=== PATIENT | female | born 1975 | race African-American/Black ===

== ENCOUNTER 2016-05-19 11:57 | Emergency (ER) | payer OTHER ==
[2016-05-19 12:02] VITALS: BMI 56.2
[2016-05-19] MEDS ORDERED: ASPIRIN 81 MG CHEWTAB ONE (12:14)
[2016-05-19] MEDS ORDERED: NITROSTAT SL ONE (12:15)
[2016-05-19] MEDS: NITROSTAT SL PRN ×2 (12:18→12:19)
[2016-05-19] MEDS ORDERED: ASPIRIN 81 MG CHEWTAB PO ONE (12:18)
--- NOTE | 2016-05-19 12:19 | DR.GENAD ---
HPI - PCP Primary Care Physician: nfd - Complaint/Symptoms Chief Complaint Doctors Comments: Patient denies history of cardiopulmonary disease. She admits to left chest pain duration of seconds, sharp in quality, no diarpohoresis or SOB Chief Complaint:: patient stated her chest started hurting about 10 to 15 mins ago. mid sterium pain. - Source History Provided: Patient - Mode of Arrival Mode of Arrival: Ambulatory - Timing Onset of Chief Complaint: 05/19/16 PMH - PMH Past Medical History: No Past Surgical History: Yes Surgical History: - Family History History of Family Medical Conditions: Yes Family Medical History: Diabetes Mellitus, Cancer, Hypertension - Social History Does patient currently use any type of tobacco product: No Have you used tobacco products in the last 12 months: No Type of Tobacco Use: None Does any household member use tobacco: No Alcohol Use: None Do you use any recreational Drugs:: No Lives With: Family Lives Where: Home - infectious screening In the last 2 months have you had wt loss of >10#?: NO Have you had fever, night sweats or hemotysis?: No Have you traveled outside the country in the last 6 months?: No Isolation: Standard ROS - Review of Systems Constitutional: No Symptoms Reported Eyes: No Symptoms Reported ENTM: No Symptoms Reported, Hearing Loss Respiratoy: No Symptoms Reported Cardiovascular: No Symptoms Reported Gastrointestinal/Abdominal: No Symptoms Reported Genitourinary: No Symptoms Reported Neurological: No Symptoms Reported Musculoskeletal: No Symptoms Reported Integumentary: No Symptoms Reported Hematologic/Lymphatic: No Symptoms Reported Endocrine: No Symptoms Reported Psychiatric: No Symptoms Reported All Other Systems: Reviewed and Negative PE - Vital Signs Vitals: Temperature 98.6 F Pulse Rate [Left Radial] 69 Pulse Rate 74 Respiratory Rate 16 Blood Pressure [Left Arm] 144/92 Blood Pressure 146/89 O2 Sat by Pulse Oximetry 100 - General Limitations: No Limitations General Appearance: Alert, In No Apparent Distress, Appears Intoxicated - Head Head Exam: Normal Inspection, Atraumatic - Eyes Eye exam: Normal Appearance, PERRL, EOMI - ENT ENT Exam: Normal Exam External Ear Exam: Normal External Inspection TM/Canal Exam: Bilateral Normal Nose Exam: Normal Nose Exam Mouth Exam: Normal Inspection Throat Exam: Normal Inspection - Neck Neck Exam: Normal Inspection - Chest Chest Inspection: Normal Inspection, Tenderness (Left upper chest reporducible pain) - Respiratory Respiratory Exam: Normal Lung Sounds Bilat Respiratory Exam: Bilateral Clear to Auscultation - Cardiovascular Cardiovascular Exam: Regular Rate - Abdominal Exam Abdominal Exam: Normal Inspection, Normal Bowel Sounds Abdominal Tenderness: negative: RUQ, RLQ, LUQ, LLQ, Epigastrium, Suprapubic, Diffuse, Mild, Moderate, Severe, Other - Extremities Extremities Exam: Normal Inspection, Full ROM, Tenderness - Back Back Exam: Normal Inspection - Neurologic Neurological Exam: negative: Alert, Oriented X3, CN II-XII Intact, Normal Gait, Motor Sensory Deficit, Reflexes Normal, Other - Psychiatric Psychiatric Exam: Normal Affect, Normal Mood - Skin Skin Exam: Warm, Dry, Intact ROR - Labs Reviewed Result Diagrams: 05/19/16 12:32 05/19/16 12:32 Laboratory: WBC 7.1 X10^3/uL (3.6-10.0) 05/19/16 12:32 RBC 3.83 X10^6/uL (3.5-5.4) 05/19/16 12:32 Hgb 8.4 g/dL (12.0-16.0) L 05/19/16 12:32 Hct 27.1 % (36.0-47.0) L 05/19/16 12:32 MCV 70.9 fL (80.0-100.0) L 05/19/16 12:32 MCH 22.0 pg (27.0-34.0) L 05/19/16 12:32 MCHC 31.1 g/dL (33.0-35.0) L 05/19/16 12:32 RDW 19.6 % (11.6-16.5) H 05/19/16 12:32 Plt Count 443 X10^3/uL (150.0-450.0) 05/19/16 12:32 Plt Count Comment Adequate (ADEQUATE) 05/19/16 12:32 MPV 7.1 fL (7.4-11.0) L 05/19/16 12:32 Neut % 55.1 % (42.0-75.0) 05/19/16 12:32 Lymph % 33.5 % (21.0-51.0) 05/19/16 12:32 [place] % 7.7 % (0.0-13.0) 05/19/16 12:32 Eos % 2.6 % (0.9-2.9) 05/19/16 12:32 Baso % 1.1 % (0.2-1.0) H 05/19/16 12:32 Neut # 3.9 x10^3/uL (2.2-4.8) 05/19/16 12:32 Lymph # 2.4 X10^3/uL (1.3-2.9) 05/19/16 12:32 [place] # 0.6 x10^3/uL (0.3-0.8) 05/19/16 12:32 Eos # 0.2 x10^3/uL (0.0-0.2) 05/19/16 12:32 Baso # 0.1 X10^3/uL (0.0-0.1) 05/19/16 12:32 Absolute Nucleated RBC 0.0 /100WBC 05/19/16 12:32 Plt Morphology Comment Normal (NORMAL) 05/19/16 12:32 RBC Morphology Abnormal (NORMAL) A 05/19/16 12:32 Hypochromasia Slight A 05/19/16 12:32 Microcytosis 2+ A 05/19/16 12:32 INR Target Range - 05/19/16 12:32 INR 1.09 (0.8-1.3) 05/19/16 12:32 PTT 26.4 SECONDS (22.9-36.5) 05/19/16 12:32 PTT Comment - 05/19/16 12:32 Sodium 140 mmol/L (136-145) 05/19/16 12:32 Corrected Sodium TNP 05/19/16 12:32 Potassium 3.8 mmol/L (3.5-5.1) 05/19/16 12:32 Chloride 106 mmol/L (98-107) 05/19/16 12:32 Carbon Dioxide 26.7 mmol/L (21-32) 05/19/16 12:32 BUN 10 mg/dL (7-18) 05/19/16 12:32 Creatinine 0.79 mg/dL (0.55-1.02) 05/19/16 12:32 Est GFR (MDRD) Af Amer > 60 (>60) 05/19/16 12:32 Est GFR (MDRD) Non-Af > 60 (>60) 05/19/16 12:32 Glucose 101 mg/dL (65-99) H 05/19/16 12:32 Calcium 8.7 mg/dL (8.5-10.1) 05/19/16 12:32 Corrected Calcium 9.3 mg/dL (8.5-10.1) 05/19/16 12:32 Phosphorus 2.7 mg/dL (2.6-4.7) 05/19/16 12:32 Magnesium 1.9 mg/dL (1.7-2.9) 05/19/16 12:32 Total Bilirubin 0.20 mg/dL (0.2-1.0) 05/19/16 12:32 AST 17 Units/L (15-37) 05/19/16 12:32 ALT 13 Units/L (12-78) 05/19/16 12:32 Alkaline Phosphatase 77 Units/L (46-116) 05/19/16 12:32 Creatine Kinase 78 Units/L (26-192) 05/19/16 12:32 CK-MB (CK-2) < 1.0 ng/mL (0-4.0) 05/19/16 12:32 CK/CKMB % Calc 1.3 % (<4) 05/19/16 12:32 Troponin I < 0.02 ng/mL (0-1.5) 05/19/16 12:32 Total Protein 7.8 g/dL (6.4-8.2) 05/19/16 12:32 Albumin 3.2 g/dL (3.4-5.0) L 05/19/16 12:32 Globulin 4.6 g/dL (2.5-4.5) H 05/19/16 12:32 Albumin/Globulin Ratio 0.7 Ratio (1.1-2.1) L 05/19/16 12:32 - Diagnosis Discharge Problem: Chest wall pain - Discharge Plan Condition: Stable - Follow ups/Referrals Follow ups/Referrals: NFD,None [Primary Care Provider] - 3 days - Instructions
[2016-05-19 12:39] VITALS: BP 144/92
[2016-05-19 12:43] LABS: BASOPHILS # (AUTO) 0.1 X10^3/uL (0.0-0.1); BASOPHILS % (AUTO) 1.1 % (0.2-1.0); EOSINOPHILS # (AUTO) 0.2 x10^3/uL (0.0-0.2); EOSINOPHILS % (AUTO) 2.6 % (0.9-2.9); HEMATOCRIT 27.1 % (36.0-47.0); HEMOGLOBIN 8.4 g/dL (12.0-16.0); LYMPHOCYTES # (AUTO) 2.4 X10^3/uL (1.3-2.9); LYMPHOCYTES % (AUTO) 33.5 % (21.0-51.0); MEAN CORPUSCULAR HGB CONC 31.1 g/dL (33.0-35.0); MEAN CORPUSCULAR VOLUME 70.9 fL (80.0-100.0); MEAN PLATELET VOLUME 7.1 fL (7.4-11.0); MONOCYTES # (AUTO) 0.6 x10^3/uL (0.3-0.8); MONOCYTES % (AUTO) 7.7 % (0.0-13.0); NEUTROPHILS # (AUTO) 3.9 x10^3/uL (2.2-4.8); NEUTROPHILS % (AUTO) 55.1 % (42.0-75.0); PLATELET COUNT 443 X10^3/uL (150.0-450.0); RED BLOOD COUNT 3.83 X10^6/uL (3.5-5.4); RED CELL DISTRIBUTION WIDTH 19.6 % (11.6-16.5); WHITE BLOOD COUNT 7.1 X10^3/uL (3.6-10.0)
--- NOTE | 2016-05-19 12:53 | RAD ---
HISTORY: Chest pain. Study: Chest one view Comparison: January 21, 2011. Findings: The trachea is midline. The cardiac silhouette is unremarkable. The lungs are clear without focal infiltrate or effusion. The bony thorax is unremarkable. IMPRESSION: 1. No acute cardiopulmonary disease. Reported By:
[2016-05-19 13:01] LABS: BLOOD UREA NITROGEN 10 mg/dL (7-18); CALCIUM 8.7 mg/dL (8.5-10.1); CARBON DIOXIDE 26.7 mmol/L (21-32); CHLORIDE 106 mmol/L (98-107); CREATININE 0.79 mg/dL (0.55-1.02); GLUCOSE 101 mg/dL (65-99); SODIUM 140 mmol/L (136-145); TROPONIN I < 0.02 ng/mL (0-1.5); eGFR BLACK RACES > 60 (>60); eGFR NON BLACK RACES > 60 (>60)
[2016-05-19 13:03] LABS: ALANINE AMINOTRANSFERASE 13 Units/L (12-78); ALBUMIN 3.2 g/dL (3.4-5.0); ALKALINE PHOSPHATASE 77 Units/L (46-116); ASPARTATE AMINO TRANSFERASE 17 Units/L (15-37); CKMB % 1.3 % (<4); COR CA(FOR HYPOALB) 9.3 mg/dL (8.5-10.1); CREATINE KINASE 78 Units/L (26-192); CREATINE KINASE MB < 1.0 ng/mL (0-4.0); MAGNESIUM 1.9 mg/dL (1.7-2.9); PHOSPHORUS 2.7 mg/dL (2.6-4.7); TOTAL PROTEIN 7.8 g/dL (6.4-8.2)
[2016-05-19 13:13] LABS: HYPOCHROMASIA SLIGHT; PLATELET MORPHOLOGY COMMENT NORMAL (NORMAL)
[2016-05-19 13:14] LABS: MICROCYTOSIS 2+
== END 2016-05-19 14:59 | disposition home or self-care (01) ==
LOC: ER 11:57
DX: R07.89 Other chest pain (principal)
CPT/HCPCS: 36415; 71010; 80053; 82550; 82553; 83735; 84100; 84484; 85025; 85610; 85730; 93005; 93010; 96365; 99283; A4222